=== PATIENT | female | born 1955 | race Caucasian/White ===

== ENCOUNTER 2024-01-02 15:08 | Outpatient (CLI) | payer MEDICARE, OTHER ==
[~2024-01-02] VITALS: Ht 160 cm; Wt 60.7 kg
[2024-01-02 15:25] VITALS: BP 109/74; PULSE 86; TEMP 97.9
[2024-01-02] MEDS ORDERED: Denosumab 60 MG/ML SYRINGE SQ ONE (15:30)
== END 2024-01-02 15:32 | disposition home or self-care (01) ==
LOC: EUO 15:08
DX: M81.0 Age-related osteoporosis without current pathological fracture (principal)
CPT/HCPCS: J0897